=== PATIENT | female | born 1975 | race Caucasian/White ===

== ENCOUNTER 2016-09-03 17:18 | Emergency (ER) | payer OTHER ==
[~2016-09-03] VITALS: Ht 160 cm; Wt 74.4 kg
[2016-09-03 17:58] VITALS: BP 140/78
--- NOTE | 2016-09-03 20:35 | NUR ---
PT TAKEN TO OF
--- NOTE | 2016-09-03 20:41 | NUR ---
PT TAKEN TO XRAY
--- NOTE | 2016-09-03 20:47 | NUR ---
PT RETURN FROM XRAY
--- NOTE | 2016-09-03 21:00 | NUR ---
41Y F BIB FAMILY C/O WORK RELATED INJURY 12/2015--HAS BEEN FOLLOWED BY WORKERS COMP TILL 03/2016 CONTINUES WITH PAIN FROM ELBOW TO WRIST, UNABLE TO OBJECTS WITH RIGHT HAND +2 RADIAL PULSE <3 SEC CAP REFILL--SHARP PAIN HX----DENIES RX----IBUPROFEN, TYLENOL
--- NOTE | 2016-09-03 21:17 | NUR ---
Dr. Sheffield evaluating patient
--- NOTE | 2016-09-03 21:25 | NUR ---
Patient discharged with v/s stable. Written and verbal after care instructions given and explained. Patient alert, oriented and verbalized understanding of instructions. Ambulatory with steady gait. All questions addressed prior to discharge. ID band removed. Patient advised to follow up with PMD. Rx of MOTIN 600MG given. Patient educated on indication of medication including possible reaction and side effects. Opportunity to ask questions provided and answered.
[2016-09-03 21:27] VITALS: BP 137/72
== END 2016-09-03 21:25 | disposition home or self-care (01) ==
LOC: MED 17:18
DX: G89.29 Other chronic pain (principal); M25.521 Pain in right elbow; Z86.73 Personal history of transient ischemic attack (TIA), and cerebral infarction without residual deficits; Z88.0 Allergy status to penicillin; Z88.2 Allergy status to sulfonamides; Z88.1 Allergy status to other antibiotic agents
CPT/HCPCS: 73080; 99284

== ENCOUNTER 2017-12-15 13:12 | Emergency (ER) | payer SELFPAY ==
[~2017-12-15] VITALS: Ht 160 cm; Wt 72.6 kg
[2017-12-15 13:17] VITALS: BP 132/94
--- NOTE | 2017-12-15 13:24 | NUR ---
PT AMBULATES TO BED 2
--- NOTE | 2017-12-15 13:30 | NUR ---
C/O RT ARM PAIN RADIATING FROM WRIST UP TO SHOULDER X 3 DAYS. DENIES INJURY/TRUAMA. WAS SENT FROM PSYCHIATRIST BECAUSE SHE STATED HER PAIN WAS SO BAD SHE FELT SUICIDAL. DENIES SI/HI UPON TRIAGE. DENIES N/V/D; SKIN IS PINK/WARM/DRY; AAOX4 WITH EVEN AND STEADY GAIT; LUNGS CLEAR BL; HR EVEN AND REGULAR; PT DENIES ANY FEVER, CP, SOB, OR COUGH AT THIS TIME; PATIENT STATES PAIN OF 9/10 AT THIS TIME; VSS; PATIENT POSITIONED FOR COMFORT; HOB ELEVATED; BEDRAILS UP X2; BED DOWN. ER MD MADE AWARE OF PT STATUS.
[2017-12-15] MEDS ORDERED: KETOROLAC 60 MG/2 ML VIAL IM ONE (14:15)
[2017-12-15] MEDS ORDERED: MORPHINE SULFATE 4 MG/ML SYR IM ONE ×2 (14:40→16:40)
[2017-12-15 15:14] LABS: BASOPHILS % (AUTO) 0.6 % (0.0-2.0); EOSINOPHILS # (AUTO) 0.2 K/uL (0-0.4); EOSINOPHILS % (AUTO) 3.9 % (0.0-4.0); HEMATOCRIT 42.6 % (36-48); HEMOGLOBIN 14.4 g/dL (12.0-16.0); LYMPHOCYTES # (AUTO) 1.8 K/uL (2.5-16.5); LYMPHOCYTES % (AUTO) 29.2 % (20.5-51.1); MEAN CORPUSCULAR HEMOGLOBIN 32 pg (27-31); MEAN CORPUSCULAR HGB CONC 34 g/dL (33-37); MEAN CORPUSCULAR VOLUME 93.2 fL (80-94); MONOCYTES # (AUTO) 0.5 K/uL (0.8-1.0); MONOCYTES % (AUTO) 8.5 % (1.7-9.3); NEUTROPHILS # (AUTO) 3.5 K/uL (1.8-7.7); NEUTROPHILS % (AUTO) 57.8 % (42.2-75.2); PLATELET COUNT (AUTO) 178 K/uL (140-450); RED BLOOD CELL COUNT(AUTO) 4.57 MIL/uL (4.20-5.40); RED CELL DISTRIBUTION WIDTH 12.6 % (11.6-13.7)
[2017-12-15 15:26] LABS: ANION GAP 10.4 (8-16); CARBON DIOXIDE 28.5 mmol/L (21-32); CHLORIDE 104 mmol/L (98-107); CREATININE 0.9 mg/dL (0.6-1.3); GFR ARICAN-AMERICAN 87 mL/min (>90); GLUCOSE 75 mg/dL (74-106); POTASSIUM 3.9 mmol/L (3.5-5.1); SODIUM SERUM 139 mmol/L (136-145); UREA NITROGEN, BLOOD 8 mg/dL (7-18)
[2017-12-15 15:32] LABS: ALBUMIN 3.9 g/dL (3.4-5.0); ASPARTATE AMINOTRANSFERASE 21 U/L (15-37); TOTAL BILIRUBIN 0.3 mg/dL (0.0-1.0)
[2017-12-15 15:33] LABS: APPEARANCE,URINE CLEAR (CLEAR); BILIRUBIN,URINE NEGATIVE (NEGATIVE); BLOOD, URINE TRACE-I (NEGATIVE); COLOR,URINE YELLOW (YELLOW); LEUKOCYTE ESTERASE ,URINE NEGATIVE (NEGATIVE); NITRITE, URINE NEGATIVE (NEGATIVE); PH,URINE 5.5 (5.0-9.0); UGLUCOSE NEGATIVE (NEGATIVE)
[2017-12-15 15:39] LABS: BARBITURATE, URINE NEG. ng/ml (NEG <=200); BENZODIAZEPINE, URINE NEG. ng/mL (NEG <=200); CANNABINOID, URINE NEG. ng/mL (NEG <=50); COCAINE, URINE NEG. ng/mL (NEG <=300); OPIATE, URINE NEG. ng/mL (NEG <=2000); PHENCYCLIDINE SCREEN,URINE NEG. ng/mL (NEG <=25)
[2017-12-15 15:45] LABS: SALICYLATE < 2.8 mg/dL (2.8-20.0)
--- NOTE | 2017-12-15 18:21 | NUR ---
pt talking with pych
[2017-12-15 18:45] VITALS: BP 146/93
--- NOTE | 2017-12-15 18:46 | NUR ---
Patient discharged with v/s stable. Written and verbal after care instructions given and explained. Patient alert, oriented and verbalized understanding of instructions. Ambulatory with steady gait. All questions addressed prior to discharge. ID band removed. Patient advised to follow up with PMD. Rx of norco and cymbalta given. Patient educated on indication of medication including possible reaction and side effects. Opportunity to ask questions provided and answered.
--- NOTE | 2017-12-16 07:30 | NUR ---
ADDENDUM: CHARGE NURSE, JUSTINE GAVE ME DISCHARGE PAPER TO CALL PATIENT TO PORTFOLIO LEAD THE RIGHT PRESCRIPTION. HE ALSO STATED THAT HE CALLED PATIENT AND LEFT MESSAGE TO RETURN TO ER FOR PRESCRIPTION
--- NOTE | 2017-12-16 13:17 | NUR ---
ADDENDUM: CALLED PATIENT AND LEFT MESSAGE TO HISTORY INSTRUCTOR RIGHT PRESCRIPTION FOR HER. ALSO LEFT MESSAGE TO SONPIETRO TO TELL MOTHER TO RETURN TO ER FOR PRESCRIPTION HISTORY INSTRUCTOR
--- NOTE | 2017-12-16 14:36 | NUR ---
ADDENDUM: AGAIN CALLED PATIENT . LEFT MESSAGE TO PIT HOIST OPERATOR PRESCRIPTION.
== END 2017-12-15 18:45 | disposition home or self-care (01) ==
LOC: MED 13:12
DX: M79.601 Pain in right arm (principal); F32.9 Major depressive disorder, single episode, unspecified; Z88.0 Allergy status to penicillin; Z88.3 Allergy status to other anti-infective agents; Z88.2 Allergy status to sulfonamides; I63.9 Cerebral infarction, unspecified
CPT/HCPCS: 29125; 36415; 80053; 80305; 81003; 81025; 85025; 96372; 99284; G0480; G0482; J1885; J2270

== ENCOUNTER 2018-07-16 12:15 | Emergency (ER) | payer MEDICAID ==
[~2018-07-16] VITALS: Ht 160 cm; Wt 77.1 kg
[~2018-07-16 12:15] MED LIST: SERT50TA PO
[2018-07-16 12:22] VITALS: BP 169/72
--- NOTE | 2018-07-16 12:34 | NUR ---
PATIENT AMBULATED TO BED 7
--- NOTE | 2018-07-16 12:37 | NUR ---
43/F BIB SELF C/O 8/10 HEADACHE, COUGH, BODY ACHES, AND N/V X1 WEEK. MEDHX:ANXIETY, DEPRESSION. PATIENT POSITIONED FOR COMFORT; HOB ELEVATED; BEDRAILS UP X2; BED DOWN. ER MD MADE AWARE OF PT STATUS.
[2018-07-16 13:20] VITALS: BP 165/68
--- NOTE | 2018-07-16 13:20 | NUR ---
DR CLANCY AT BEDSIDE
--- NOTE | 2018-07-16 13:24 | NUR ---
Patient discharged with v/s stable BY DR CLANCY. Written and verbal after care instructions given and explained. Patient alert, oriented and verbalized understanding of instructions. Ambulatory with steady gait. All questions addressed prior to discharge. ID band removed. Patient advised to follow up with PMD. Rx of LEVAQUIN, PROMETHAZINE given. Patient educated on indication of medication including possible reaction and side effects. Opportunity to ask questions provided and answered.
== END 2018-07-16 13:24 | disposition home or self-care (01) ==
LOC: MED 12:15
DX: J06.9 Acute upper respiratory infection, unspecified (principal); Z88.0 Allergy status to penicillin; Z88.1 Allergy status to other antibiotic agents
CPT/HCPCS: 99283

== ENCOUNTER 2019-09-09 23:59 | Emergency (ER) | payer MEDICAID ==
[~2019-09-09] VITALS: Ht 160 cm; Wt 72.6 kg
[2019-09-10 00:04] VITALS: BP 133/77
--- NOTE | 2019-09-10 00:25 | NUR ---
PT STARTED HAVING BURNING PAIN TO LEFT BREAST RADIATING INTO LEFT SHOULDER AT 2200 ON 09/09/19. DENIES N/T TO EXTREMITIES, NO SOB, SOME NAUSEA, NO VOMITING. EKG SHOWS NSR. V/S WNL. PT IN BED IN LOWEST POSITION AND PLACED ON BEDSIDE MONITOR. DENIES PAST MEDICAL HX DENIES TAKING MEDS ALLERGIES - PCN, SULFA,TRIMETHOPRIM
--- NOTE | 2019-09-10 00:38 | NUR ---
Dr. Kessler examining patient.
[2019-09-10] MEDS ORDERED: KETOROLAC 30 MG/ML VIAL IVP ONE (00:40)
[2019-09-10] MEDS ORDERED: HYDROcodone/APAP 5/325 MG 1 TAB TAB PO ONE (00:40)
--- NOTE | 2019-09-10 00:49 | NUR ---
XRAY AT BEDSIDE BLOOD DRAWN AND GIVEN TO LAB
--- NOTE | 2019-09-10 00:54 | NUR ---
X-Ray at bedside.
[2019-09-10 01:01] LABS: BASOPHILS # (AUTO) 0.1 K/uL (0.00-0.22); BASOPHILS % (AUTO) 0.9 % (0.0-2.0); EOSINOPHILS # (AUTO) 0.3 K/uL (0-0.4); EOSINOPHILS % (AUTO) 2.5 % (0.0-4.0); HEMATOCRIT 44.3 % (36-48); HEMOGLOBIN 14.8 g/dL (12.0-16.0); LYMPHOCYTES % (AUTO) 39.9 % (20.5-51.1); MEAN CORPUSCULAR HEMOGLOBIN 32 pg (27-31); MEAN CORPUSCULAR HGB CONC 34 g/dL (33-37); MEAN CORPUSCULAR VOLUME 95.2 fL (80-94); MONOCYTES # (AUTO) 0.6 K/uL (0.8-1.0); MONOCYTES % (AUTO) 6.3 % (1.7-9.3); NEUTROPHILS # (AUTO) 5.1 K/uL (1.8-7.7); NEUTROPHILS % (AUTO) 50.4 % (42.2-75.2); PLATELET COUNT (AUTO) 162 K/uL (140-450); RED BLOOD CELL COUNT(AUTO) 4.66 MIL/uL (4.20-5.40); RED CELL DISTRIBUTION WIDTH 12.6 % (11.6-13.7); WHITE BLOOD COUNT (AUTO) 10.1 K/uL (4.8-10.8)
--- NOTE | 2019-09-10 01:22 | NUR ---
PT STATES PAIN HAS DECREASED SOME, NOW 01/03
--- NOTE | 2019-09-10 01:23 | NUR ---
PT REMAINS ON BEDSIDE MONITOR
[2019-09-10 01:24] LABS: ALBUMIN 3.7 g/dL (3.4-5.0); ANION GAP 12.3 (8-16); CREATININE 0.9 mg/dL (0.6-1.3); POTASSIUM 4.3 mmol/L (3.5-5.1); TOTAL BILIRUBIN 0.3 mg/dL (0.0-1.0)
[2019-09-10 01:37] LABS: CREATINE KINASE MB 0.3 ng/mL (0-3.6)
[2019-09-10] MEDS ORDERED: MORPHINE SULFATE 4 MG/ML SYR IVP ONE (01:45)
[2019-09-10 02:06] VITALS: BP 101/52
--- NOTE | 2019-09-10 02:08 | NUR ---
Patient discharged with v/s stable. Written and verbal after care instructions given and explained. Patient alert, oriented and verbalized understanding of instructions. Ambulatory with steady gait. All questions addressed prior to discharge. ID band removed. Patient advised to follow up with PMD. Rx of NORCO AND NAPROSYN given. Patient educated on indication of medication including possible reaction and side effects. Opportunity to ask questions provided and answered.
== END 2019-09-10 02:08 | disposition home or self-care (01) ==
LOC: MED 23:59
DX: N64.4 Mastodynia (principal); R07.89 Other chest pain; Z98.890 Other specified postprocedural states; Z79.899 Other long term (current) drug therapy; Z88.0 Allergy status to penicillin; Z88.1 Allergy status to other antibiotic agents; Z88.2 Allergy status to sulfonamides
CPT/HCPCS: 36415; 71045; 80053; 82550; 82553; 83690; 84484; 85025; 93005; 96374; 96375; 99284; J1885; J2270; Q0092

== ENCOUNTER 2021-01-16 13:12 | Emergency (ER) | payer MEDICAID ==
--- NOTE | 2021-01-16 13:47 | NUR ---
ATTEMPTED TO TRIAGE PT, NO ANSWER
--- NOTE | 2021-01-16 14:09 | NUR ---
2ND ATTEMPT TO TRIAGE PT, NO ANSWER
--- NOTE | 2021-01-16 14:10 | NUR ---
PATIENT LEFT WITHOUT BEING SEEN BY DR. LANDRY/LATOYA. NO FURTHER CARE PROVIDED FOR PATIENT
--- NOTE | 2021-01-16 14:10 | NUR ---
Wes alvarez in [facility] - 01/16/21 at 1411 by [email or web address] PATIENT LEFT WITHOUT BEING SEEN BY DR. KLEIN. NO FURTHER CARE PROVIDED FOR PATIENT.
== END 2021-01-16 14:09 | disposition left against medical advice (07) ==
LOC: MED 13:12
DX: M79.603 Pain in arm, unspecified (principal); Z53.21 Procedure and treatment not carried out due to patient leaving prior to being seen by health care provider